=== PATIENT | female | born 1985 | race Caucasian/White ===

== ENCOUNTER 2018-09-15 23:18 | Emergency (ER) | payer BC ==
--- NOTE | 2018-09-15 23:36 | EDM.PDOC ---
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 Patient that she had temperature of 102 at home. No abdominal pain cramping vaginal bleeding discharge urinary symptoms or other complaints Review of systems: As per history of present illness and below otherwise all systems reviewed and negative. Past medical history: As per history of present illness and as reviewed below otherwise noncontributory. Surgical history: As per history of present illness and as reviewed below otherwise noncontributory. Social history: No reported history of drug or alcohol abuse. Family history: As per history of present illness and as reviewed below otherwise noncontributory. Physical exam: HEENT: Atraumatic, normocephalic, pupils reactive, negative for conjunctival pallor or scleral icterus, mucous membranes moist, throat clear, neck supple, nontender, trachea midline. Tenderness with percussion over her maxillary frontal sinuses Lungs: Clear to auscultation, breath sounds equal bilaterally, chest nontender. Heart: S1S2, regular, negative for clicks, rubs, or JVD. Abdomen: Soft, gravid uterus consistent with dates nontender heart tones present. Negative for masses or hepatosplenomegaly. Negative for costovertebral tenderness. Pelvis: Stable nontender. Genitourinary: Deferred. Rectal: Deferred. Extremities: Atraumatic, negative for cords or calf pain. Neurovascular unremarkable. Neuro: Awake, alert, oriented. Cranial nerves II through XII unremarkable. Cerebellum unremarkable. Motor and sensory unremarkable throughout. Exam nonfocal. Diagnostics: CBC CMP UA influenza screen Therapeutics: None Impression: #1 3 trimester #2 sinusitis Definitive disposition and diagnosis as appropriate pending reevaluation and review of above. 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 ED EXAM, GENERAL - Physical Exam Exam: See Below (See dictation) Course - Vital Signs Last Recorded V/S: Last Vital Signs Temp 36.6 C 09/15/18 23:18 Pulse 118 H 09/15/18 23:18 Resp 18 09/15/18 23:18 BP 130/79 09/15/18 23:18 Pulse Ox 100 09/15/18 23:18 - Orders/Labs/Meds Orders: Active Orders 24 hr Category Date Time Status CBC WITH AUTO DIFF [HEME] Stat Lab 09/15/18 23:20 Ordered COMPREHENSIVE METABOLIC PN,CMP [CHEM] Stat Lab 09/15/18 23:20 Ordered INFLUENZA A+B AG SCREEN [RM] Stat Lab 09/15/18 23:20 Ordered UA RFX LORETA AND CULT IF INDIC [URIN] Stat Lab 09/15/18 23:20 Ordered Departure - Departure Time of Disposition: 23:34 Disposition: Home, Self-Care 01 Condition: Good Clinical Impression: Sinusitis, Third trimester - Discharge Information Additional Instructions: The following information is given to patients seen in the emergency department who are being discharged to home. This information is to outline your options for follow-up care. We provide all patients seen in our emergency department with a follow-up referral. The need for follow-up, as well as the timing and circumstances, are variable depending upon the specifics of your emergency department visit. If you don't have a primary care physician on staff, we will provide you with a referral. We always advise you to contact your personal physician following an emergency department visit to inform them of the circumstance of the visit and for follow-up with them and/or the need for any referrals to a consulting specialist. The emergency department will also refer you to a specialist when appropriate. This referral assures that you have the opportunity for followup care with a specialist. All of these measure are taken in an effort to provide you with optimal care, which includes your followup. Under all circumstances we always encourage you to contact your private physician who remains a resource for coordinating your care. When calling for followup care, please make the office aware that this follow-up is from your recent emergency room visit. If for any reason you are refused follow-up, please contact the [facility] emergency department at and asked to speak to the emergency department charge nurse. Z-Júnior as prescribed follow-up BATTER MIXER HELPER return as needed as discussed - My Orders Last 24 Hours: My Active Orders 09/15/18 23:20 CBC WITH AUTO DIFF [HEME] Stat COMPREHENSIVE METABOLIC PN,CMP [CHEM] Stat INFLUENZA A+B AG SCREEN [RM] Stat UA RFX LORETA AND CULT IF INDIC [URIN] Stat - Assessment/Plan Last 24 Hours: My Active Orders 09/15/18 23:20 CBC WITH AUTO DIFF [HEME] Stat COMPREHENSIVE METABOLIC PN,CMP [CHEM] Stat INFLUENZA A+B AG SCREEN [RM] Stat UA RFX LORETA AND CULT IF INDIC [URIN] Stat
[2018-09-15 23:55] LABS: CHLORIDE,CL 102 mmol/L (98-107); SODIUM,NA 137 mmol/L (136-145)
== END 2018-09-16 00:08 | disposition home or self-care (01) ==
LOC: MW.ED 23:18
DX: O99.513 Diseases of the respiratory system complicating pregnancy, third trimester (principal); J32.9 Chronic sinusitis, unspecified; O99.333 Smoking (tobacco) complicating pregnancy, third trimester; F17.210 Nicotine dependence, cigarettes, uncomplicated; Z3A.36 36 weeks gestation of pregnancy
CPT/HCPCS: 36415; 80053; 81001; 85025; 87804; 99282; 99283

== ENCOUNTER 2018-10-19 18:03 | Inpatient (IN) | payer BC ==
[2018-10-19] MEDS ORDERED: fentaNYL 100 MCG/2 ML SDV ONE (18:55)
[2018-10-19] MEDS ORDERED: Tranexamic Acid 1,000 MG in Sodium Chloride 0.9% 100 ML IV PRN (18:56)
[2018-10-19] MEDS ORDERED: Water For Irrigation,Sterile 1,000 ML Container IRR PRN (18:56)
[2018-10-19] MEDS ORDERED: Sodium Chloride 0.9% 2.5 ML Syringe FLUSH PRN (18:56)
[2018-10-19] MEDS ORDERED: Nalbuphine 10 MG/1 ML Vial IVPUSH PRN (18:56)
[2018-10-19] MEDS ORDERED: Carboprost Tromethamine 250 MCG/1 ML Amp IM PRN (18:56)
[2018-10-19] MEDS ORDERED: Sodium Chloride 0.9% 10 ML Syringe FLUSH PRN (18:56)
[2018-10-19] MEDS ORDERED: Misoprostol 200 MCG Tab PO PRN (18:56)
[2018-10-19] MEDS ORDERED: Butorphanol 1 MG/ML SDV IVPUSH PRN (18:56)
[2018-10-19] MEDS ORDERED: Sodium Chloride 0.9% 10 ML SDV IV PRN (18:56)
[2018-10-19] MEDS ORDERED: Lidocaine 1% 50 ML MDV INJECT PRN (18:56)
[2018-10-19] MEDS ORDERED: Methylergonovine 0.2 MG/1 ML Amp IM PRN (18:56)
[2018-10-19] MEDS ORDERED: ePHEDrine 50 MG/ML SDV ONE ×2 (18:58→19:32)
[2018-10-19] MEDS ORDERED: Lactated Ringers 1,000 ML IV SCH (19:00)
[2018-10-19] MEDS ORDERED: Oxytocin/0.9 % Sodium Chloride 30 UNIT/500 ML BAG IV SCH (19:00)
--- NOTE | 2018-10-19 19:24 | PCM.PREANE ---
Preanesthetic Assessment - Procedure Proposed Procedure: Intrathecal for labor - Anesthesia/Transfusion/Family Hx Anesthesia History: No Prior Anesthesia Family History of Anesthesia Reaction: No Transfusion History: Unknown Intubation History: Unknown - Review of Systems General: No Symptoms Pulmonary: No Symptoms Cardiovascular: No Symptoms Gastrointestinal: No Symptoms Neurological: No Symptoms Other: Reports: None - Physical Assessment ASA Class: 2 Mental Status: Alert & Oriented x3 Dentition: Reports: Normal Dentition Thyro-Mental Finger Breadths: 3 Mouth Opening Finger Breadths: 3 ROM/Head Extension: Full Lungs: Clear to Auscultation, Normal Respiratory Effort Cardiovascular: Regular Rate, Regular Rhythm - Lab Values: Laboratory Last Values WBC 16.49 K/uL (4.0-11.0) H 10/19/18 18:36 RBC 4.59 M/uL (4.30-5.90) 10/19/18 18:36 Hgb 12.3 g/dL (12.0-16.0) 10/19/18 18:36 Hct 37.4 % (36.0-46.0) 10/19/18 18:36 MCV 81.5 fL (80.0-98.0) 10/19/18 18:36 MCH 26.8 pg (27.0-32.0) L 10/19/18 18:36 MCHC 32.9 g/dL (31.0-37.0) 10/19/18 18:36 RDW Std Deviation 45.6 fl (28.0-62.0) 10/19/18 18:36 RDW Coeff of Jonah 16 % (11.0-15.0) H 10/19/18 18:36 Plt Count 321 K/uL (150-400) 10/19/18 18:36 MPV 10.10 fL (7.40-12.00) 10/19/18 18:36 Nucleated RBC % 0.0 /100WBC 10/19/18 18:36 Nucleated RBCs # 0 K/uL 10/19/18 18:36 - Allergies Allergies/Adverse Reactions: Allergies Allergy/AdvReac Type Severity Reaction Status Date / Time No Known Allergies Allergy Verified 09/15/18 23:19 - Blood Blood Available: Yes Product(s) Available: None - Anesthesia Plan Pre-Op Medication Ordered: None (Consent obtained pt and verbalize understanding) PreAnesthesia Questionnaire - Past Health History Medical/Surgical History: Denies 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 [No Known Home Meds] 09/15/18 [History] - CURRENT (IN HOUSE) MEDS Current Meds: Current Medications Butorphanol Tartrate (Stadol) 1 mg IVPUSH Q1H PRN PRN Reason: Pain Carboprost Tromethamine (Hemabate Ds) 250 mcg IM ASDIRECTED PRN PRN Reason: Post Hemorrhage Lactated Ringer's (Ringers, Lactated) 1,000 mls @ 150 mls/hr IV ASDIRECTED [facility] Oxytocin/Sodium Chloride (Oxytocin 30 Unit/500 Ml-Ns) 30 unit in 500 mls @ 999 mls/hr IV TITRATE [facility] Tranexamic Acid 1,000 mg/ (Sodium Chloride) 110 mls @ 660 mls/hr IV ONETIME PRN PRN Reason: Bleeding Lidocaine HCl (Xylocaine 1%) 50 ml INJECT ONETIME PRN PRN Reason: Laceration repair Methylergonovine Maleate (Methergine) 0.2 mg IM ASDIRECTED PRN PRN Reason: Post Hemorrhage Misoprostol (Cytotec) 200 mcg PO ONETIME PRN PRN Reason: Post Hemorrhage Nalbuphine HCl (Nubain) 10 mg IVPUSH Q1H PRN PRN Reason: Pain (severe 7-10) Sodium Chloride (Saline Flush) 10 ml FLUSH ASDIRECTED PRN PRN Reason: Keep Vein Open Sodium Chloride (Saline Flush) 2.5 ml FLUSH ASDIRECTED PRN PRN Reason: Keep Vein Open Sodium Chloride (Normal Saline) 10 ml IV ASDIRECTED PRN PRN Reason: IV Use Sterile Water (Sterile Water For Irrigation) 1,000 ml IRR ASDIRECTED PRN PRN Reason: delivery Discontinued Medications Ephedrine Sulfate (Ephedrine Sulfate) Confirm Administered Dose 50 mg .ROUTE .STK-MED ONE Stop: 10/19/18 18:59 Fentanyl (Sublimaze) Confirm Administered Dose 100 mcg .ROUTE .STK-MED ONE Stop: 10/19/18 18:56
[2018-10-19] MEDS ORDERED: Benzocaine/Menthol 20%-0.5% Spray 78 GM Cannister TOP PRN (20:17)
[2018-10-19] MEDS ORDERED: Bisacodyl 10 MG Supp RECTAL PRN (20:17)
[2018-10-19] MEDS ORDERED: Witch Hazel Medicated Pads 40/Jar TOP PRN (20:17)
[2018-10-19] MEDS ORDERED: Acetaminophen 500 MG Tab PO PRN ×2 (20:17)
[2018-10-19] MEDS ORDERED: Ibuprofen 800 MG Tab PO PRN (20:17)
[2018-10-19] MEDS ORDERED: Ibuprofen 400 MG Tab PO PRN (20:17)
[2018-10-19] MEDS ORDERED: Docusate Sodium 100 MG Cap PO PRN (20:17)
[2018-10-19] MEDS ORDERED: Lanolin 100% Cream 7 GM Tube TOP PRN (20:17)
--- NOTE | 2018-10-19 20:23 | PCM.DEL ---
L & D Note - General Info Date of Service: 10/19/18 - Delivery Note Labor: Spontaneous Delivery Outcome: Livebirth Delivery Method: Spontaneous Vaginal Delivery-Single Delivery Mode: Spontaneous Presentation: Vertex Nuchal Cord: None Anesthetic: Other (Intrathecal) Amniotic Fluid Description: Clear Episiotomy Type: None Laceration: None Placenta: Intact, Spontaneous Estimated Blood Loss: 200 Resuscitation Needed: No - General Info Date of Service: 10/19/18 - Patient Data Weight - Most Recent: 82.1 kg Lab Results Last 24 Hours: Laboratory Results - last 24 hr 10/19/18 10/19/18 Range/Units 18:36 18:36 WBC 16.49 H (4.0-11.0) K/uL RBC 4.59 (4.30-5.90) M/uL Hgb 12.3 (12.0-16.0) g/dL Hct 37.4 (36.0-46.0) % MCV 81.5 (80.0-98.0) fL MCH 26.8 L (27.0-32.0) pg MCHC 32.9 (31.0-37.0) g/dL RDW Std Deviation 45.6 (28.0-62.0) fl RDW Coeff of Jonah 16 H (11.0-15.0) % Plt Count 321 (150-400) K/uL MPV 10.10 (7.40-12.00) fL Nucleated RBC % 0.0 /100WBC Nucleated RBCs # 0 K/uL Blood Type AB POSITIVE Antibody Screen NEGATIVE Med Orders - Current: Current Medications Discontinued Medications Butorphanol Tartrate (Stadol) 1 mg IVPUSH Q1H PRN PRN Reason: Pain Carboprost Tromethamine (Hemabate Ds) 250 mcg IM ASDIRECTED PRN PRN Reason: Post Hemorrhage Ephedrine Sulfate (Ephedrine Sulfate) Confirm Administered Dose 50 mg .ROUTE .STK-MED ONE Stop: 10/19/18 18:59 Ephedrine Sulfate (Ephedrine Sulfate) Confirm Administered Dose 50 mg .ROUTE .STK-MED ONE Stop: 10/19/18 19:33 Fentanyl (Sublimaze) Confirm Administered Dose 100 mcg .ROUTE .STK-MED ONE Stop: 10/19/18 18:56 Lactated Ringer's (Ringers, Lactated) 1,000 mls @ 150 mls/hr IV ASDIRECTED [facility] Oxytocin/Sodium Chloride (Oxytocin 30 Unit/500 Ml-Ns) 30 unit in 500 mls @ 999 mls/hr IV TITRATE [facility] Tranexamic Acid 1,000 mg/ (Sodium Chloride) 110 mls @ 660 mls/hr IV ONETIME PRN PRN Reason: Bleeding Lidocaine HCl (Xylocaine 1%) 50 ml INJECT ONETIME PRN PRN Reason: Laceration repair Methylergonovine Maleate (Methergine) 0.2 mg IM ASDIRECTED PRN PRN Reason: Post Hemorrhage Misoprostol (Cytotec) 200 mcg PO ONETIME PRN PRN Reason: Post Hemorrhage Nalbuphine HCl (Nubain) 10 mg IVPUSH Q1H PRN PRN Reason: Pain (severe 7-10) Sodium Chloride (Saline Flush) 10 ml FLUSH ASDIRECTED PRN PRN Reason: Keep Vein Open Sodium Chloride (Saline Flush) 2.5 ml FLUSH ASDIRECTED PRN PRN Reason: Keep Vein Open Sodium Chloride (Normal Saline) 10 ml IV ASDIRECTED PRN PRN Reason: IV Use Sterile Water (Sterile Water For Irrigation) 1,000 ml IRR ASDIRECTED PRN PRN Reason: delivery - Problem List Review Problem List Initiated/Reviewed/Updated: Yes - My Orders Last 24 Hours: My Active Orders 10/19/18 18:56 Heart Tones [RC] CONTINUOUS Non Stress Test [RC] PER UNIT ROUTINE May Shower [RC] ASDIRECTED Notify Provider [RC] PRN Up ad Paula [RC] ASDIRECTED Vaginal Exam [RC] PRN Vital Signs [RC] PER UNIT ROUTINE 10/19/18 20:17 Patient Status [ADT] Routine May Shower [RC] ASDIRECTED Up ad Paula [RC] ASDIRECTED Vital Signs [RC] PER UNIT ROUTINE Acetaminophen [Tylenol Extra Strength] 1,000 mg PO Q4H PRN Acetaminophen [Tylenol Extra Strength] 500 mg PO Q4H PRN Benzocaine/Menthol [Dermoplast Pain Relief 20%-0.5% [place]] 78 gm TOP ASDIRECTED PRN Bisacodyl [Dulcolax] 10 mg RECTAL ONETIME PRN Docusate Sodium [Colace] 100 mg PO BID PRN Ibuprofen [Motrin] 400 mg PO Q4H PRN Ibuprofen [Motrin] 800 mg PO Q6H PRN Lanolin [Lansinoh HPA] See Dose Instructions TOP ASDIRECTED PRN Witch Elif [Tucks] 1 pad TOP ASDIRECTED PRN Assess Lochia [WOMSER] Per Unit Routine Assess Uterine Involution [WOMSER] Per Unit Routine Peripheral IV Discontinue [OM.PC] Routine Resuscitation Status Routine 10/20/18 05:11 HEMOGLOBIN/HEMATOCRIT,HH [HEME] Timed - Assessment Assessment:: . Vigorous girl. No laceration. Mother and baby well, to PP - Plan Plan:: To PP cares.
--- NOTE | 2018-10-20 08:13 | PCM48HPAN ---
Post Anesthesia Note - EVALUATION WITHIN 48HRS OF ANESTHETIC Vital Signs in Normal Range: Yes Patient Participated in Evaluation: Yes Respiratory Function Stable: Yes Airway Patent: Yes Cardiovascular Function Stable: Yes Hydration Status Stable: Yes Pain Control Satisfactory: Yes Nausea and Vomiting Control Satisfactory: Yes Mental Status Recovered: Yes Pulse Rate: 90 SaO2: 98 Resp Rate: 16 Blood Pressure: 104/70
--- NOTE | 2018-10-20 10:44 | PCM.PN ---
- General Info Date of Service: 10/20/18 Functional Status: Reports: Pain Controlled, Tolerating Diet, Ambulating - Review of Systems General: Reports: No Symptoms Gastrointestinal: Reports: No Symptoms Genitourinary: Reports: No Symptoms (normal lochia flow) - Patient Data Vitals - Most Recent: Last Vital Signs Temp 36.7 C 10/20/18 07:33 Pulse 90 10/20/18 08:13 Resp 16 10/20/18 08:13 BP 104/70 10/20/18 08:13 Pulse Ox 98 10/20/18 08:13 Weight - Most Recent: 82.554 kg Lab Results Last 24 Hours: Laboratory Results - last 24 hr 10/19/18 10/19/18 10/20/18 Range/Units 18:36 18:36 05:49 WBC 16.49 H (4.0-11.0) K/uL RBC 4.59 (4.30-5.90) M/uL Hgb 12.3 12.3 (12.0-16.0) g/dL Hct 37.4 38.6 (36.0-46.0) % MCV 81.5 (80.0-98.0) fL MCH 26.8 L (27.0-32.0) pg MCHC 32.9 (31.0-37.0) g/dL RDW Std Deviation 45.6 (28.0-62.0) fl RDW Coeff of Jonah 16 H (11.0-15.0) % Plt Count 321 (150-400) K/uL MPV 10.10 (7.40-12.00) fL Nucleated RBC % 0.0 /100WBC Nucleated RBCs # 0 K/uL Blood Type AB POSITIVE Antibody Screen NEGATIVE Med Orders - Current: Current Medications Acetaminophen (Tylenol Extra Strength) 500 mg PO Q4H PRN PRN Reason: Pain Acetaminophen (Tylenol Extra Strength) 1,000 mg PO Q4H PRN PRN Reason: Pain Benzocaine/Menthol (Dermoplast Pain Relief 20%-0.5% [place]) 78 gm TOP ASDIRECTED PRN PRN Reason: Perineal Comfort Measure Bisacodyl (Dulcolax) 10 mg RECTAL ONETIME PRN PRN Reason: Constipation Docusate Sodium (Colace) 100 mg PO BID PRN PRN Reason: Constipation Emollient Ointment (Lansinoh Hpa) 0 gm TOP ASDIRECTED PRN PRN Reason: Sore Nipples Ibuprofen (Motrin) 400 mg PO Q4H PRN PRN Reason: Pain Ibuprofen (Motrin) 800 mg PO Q6H PRN PRN Reason: Pain Witch Elif (Tucks) 1 pad TOP ASDIRECTED PRN PRN Reason: comfort care Discontinued Medications Butorphanol Tartrate (Stadol) 1 mg IVPUSH Q1H PRN PRN Reason: Pain Carboprost Tromethamine (Hemabate Ds) 250 mcg IM ASDIRECTED PRN PRN Reason: Post Hemorrhage Ephedrine Sulfate (Ephedrine Sulfate) Confirm Administered Dose 50 mg .ROUTE .STK-MED ONE Stop: 10/19/18 18:59 Ephedrine Sulfate (Ephedrine Sulfate) Confirm Administered Dose 50 mg .ROUTE .STK-MED ONE Stop: 10/19/18 19:33 Fentanyl (Sublimaze) Confirm Administered Dose 100 mcg .ROUTE .STK-MED ONE Stop: 10/19/18 18:56 Lactated Ringer's (Ringers, Lactated) 1,000 mls @ 150 mls/hr IV ASDIRECTED [facility] Oxytocin/Sodium Chloride (Oxytocin 30 Unit/500 Ml-Ns) 30 unit in 500 mls @ 999 mls/hr IV TITRATE [facility] Last Admin: 10/19/18 19:55 Dose: 500 mls/hr Tranexamic Acid 1,000 mg/ (Sodium Chloride) 110 mls @ 660 mls/hr IV ONETIME PRN PRN Reason: Bleeding Lidocaine HCl (Xylocaine 1%) 50 ml INJECT ONETIME PRN PRN Reason: Laceration repair Methylergonovine Maleate (Methergine) 0.2 mg IM ASDIRECTED PRN PRN Reason: Post Hemorrhage Misoprostol (Cytotec) 200 mcg PO ONETIME PRN PRN Reason: Post Hemorrhage Nalbuphine HCl (Nubain) 10 mg IVPUSH Q1H PRN PRN Reason: Pain (severe 7-10) Sodium Chloride (Saline Flush) 10 ml FLUSH ASDIRECTED PRN PRN Reason: Keep Vein Open Sodium Chloride (Saline Flush) 2.5 ml FLUSH ASDIRECTED PRN PRN Reason: Keep Vein Open Sodium Chloride (Normal Saline) 10 ml IV ASDIRECTED PRN PRN Reason: IV Use Sterile Water (Sterile Water For Irrigation) 1,000 ml IRR ASDIRECTED PRN PRN Reason: delivery - Exam General: Alert, Oriented, Cooperative, No Acute Distress Neck: Supple GI/Abdominal Exam: Soft, Non-Tender (Female) Exam: Other (Uterus firm and non-tender.) Back Exam: Normal Inspection (no CVAT) Extremities: Normal Inspection - Problem List Review Problem List Initiated/Reviewed/Updated: Yes - My Orders Last 24 Hours: My Active Orders 10/19/18 18:56 Heart Tones [RC] CONTINUOUS Non Stress Test [RC] PER UNIT ROUTINE May Shower [RC] ASDIRECTED Notify Provider [RC] PRN Up ad Paula [RC] ASDIRECTED Vaginal Exam [RC] PRN Vital Signs [RC] PER UNIT ROUTINE 10/19/18 20:17 Patient Status [ADT] Routine May Shower [RC] ASDIRECTED Up ad Paula [RC] ASDIRECTED Vital Signs [RC] PER UNIT ROUTINE Acetaminophen [Tylenol Extra Strength] 1,000 mg PO Q4H PRN Acetaminophen [Tylenol Extra Strength] 500 mg PO Q4H PRN Benzocaine/Menthol [Dermoplast Pain Relief 20%-0.5% [place]] 78 gm TOP ASDIRECTED PRN Bisacodyl [Dulcolax] 10 mg RECTAL ONETIME PRN Docusate Sodium [Colace] 100 mg PO BID PRN Ibuprofen [Motrin] 400 mg PO Q4H PRN Ibuprofen [Motrin] 800 mg PO Q6H PRN Lanolin [Lansinoh HPA] See Dose Instructions TOP ASDIRECTED PRN Witch Elif [Tucks] 1 pad TOP ASDIRECTED PRN Assess Lochia [WOMSER] Per Unit Routine Assess Uterine Involution [WOMSER] Per Unit Routine Peripheral IV Discontinue [OM.PC] Routine Resuscitation Status Routine 10/20/18 Breakfast Regular Diet [DIET] - Assessment Assessment:: Pt feels well. No c/o. Discharge risks discussed. Discharge. - Plan Plan:: Discharge to home, with risks discussed.
--- NOTE | 2018-10-20 10:52 | PCM.DCSUM1 ---
Discharge Summary - Hospital Course Free Text/Narrative:: PPD#1 uncomplicated - Discharge Data Discharge Date: 10/20/18 Discharge Disposition: Home, Self-Care 01 Condition: Good - Patient Summary/Data Operative Procedure(s) Performed: vaginal delivery Complications: none - Patient Instructions Diet: Regular Diet as Tolerated Activity: Rest and Relax Today (pelvic rest x 6 weeks) - Discharge Plan *PRESCRIPTION DRUG MONITORING PROGRAM REVIEWED*: Not Applicable Home Medications: Home Meds . [No Known Home Meds] 09/15/18 [History] - Discharge Summary/Plan Comment DC Time >30 min.: No - General Info Date of Service: 10/20/18 - Review of Systems General: Reports: No Symptoms Gastrointestinal: Reports: No Symptoms Genitourinary: Reports: No Symptoms - Patient Data Vitals - Most Recent: Last Vital Signs Temp 36.7 C 10/20/18 07:33 Pulse 90 10/20/18 08:13 Resp 16 10/20/18 08:13 BP 104/70 10/20/18 08:13 Pulse Ox 98 10/20/18 08:13 Weight - Most Recent: 82.554 kg Lab Results - Last 24 hrs: Laboratory Results - last 24 hr 10/19/18 10/19/18 10/20/18 Range/Units 18:36 18:36 05:49 WBC 16.49 H (4.0-11.0) K/uL RBC 4.59 (4.30-5.90) M/uL Hgb 12.3 12.3 (12.0-16.0) g/dL Hct 37.4 38.6 (36.0-46.0) % MCV 81.5 (80.0-98.0) fL MCH 26.8 L (27.0-32.0) pg MCHC 32.9 (31.0-37.0) g/dL RDW Std Deviation 45.6 (28.0-62.0) fl RDW Coeff of Jonah 16 H (11.0-15.0) % Plt Count 321 (150-400) K/uL MPV 10.10 (7.40-12.00) fL Nucleated RBC % 0.0 /100WBC Nucleated RBCs # 0 K/uL Blood Type AB POSITIVE Antibody Screen NEGATIVE Med Orders - Current: Current Medications Acetaminophen (Tylenol Extra Strength) 500 mg PO Q4H PRN PRN Reason: Pain Acetaminophen (Tylenol Extra Strength) 1,000 mg PO Q4H PRN PRN Reason: Pain Benzocaine/Menthol (Dermoplast Pain Relief 20%-0.5% [place]) 78 gm TOP ASDIRECTED PRN PRN Reason: Perineal Comfort Measure Bisacodyl (Dulcolax) 10 mg RECTAL ONETIME PRN PRN Reason: Constipation Docusate Sodium (Colace) 100 mg PO BID PRN PRN Reason: Constipation Emollient Ointment (Lansinoh Hpa) 0 gm TOP ASDIRECTED PRN PRN Reason: Sore Nipples Ibuprofen (Motrin) 400 mg PO Q4H PRN PRN Reason: Pain Ibuprofen (Motrin) 800 mg PO Q6H PRN PRN Reason: Pain Witch Elif (Tucks) 1 pad TOP ASDIRECTED PRN PRN Reason: comfort care Discontinued Medications Butorphanol Tartrate (Stadol) 1 mg IVPUSH Q1H PRN PRN Reason: Pain Carboprost Tromethamine (Hemabate Ds) 250 mcg IM ASDIRECTED PRN PRN Reason: Post Hemorrhage Ephedrine Sulfate (Ephedrine Sulfate) Confirm Administered Dose 50 mg .ROUTE .STK-MED ONE Stop: 10/19/18 18:59 Ephedrine Sulfate (Ephedrine Sulfate) Confirm Administered Dose 50 mg .ROUTE .STK-MED ONE Stop: 10/19/18 19:33 Fentanyl (Sublimaze) Confirm Administered Dose 100 mcg .ROUTE .STK-MED ONE Stop: 10/19/18 18:56 Lactated Ringer's (Ringers, Lactated) 1,000 mls @ 150 mls/hr IV ASDIRECTED [facility] Oxytocin/Sodium Chloride (Oxytocin 30 Unit/500 Ml-Ns) 30 unit in 500 mls @ 999 mls/hr IV TITRATE [facility] Last Admin: 10/19/18 19:55 Dose: 500 mls/hr Tranexamic Acid 1,000 mg/ (Sodium Chloride) 110 mls @ 660 mls/hr IV ONETIME PRN PRN Reason: Bleeding Lidocaine HCl (Xylocaine 1%) 50 ml INJECT ONETIME PRN PRN Reason: Laceration repair Methylergonovine Maleate (Methergine) 0.2 mg IM ASDIRECTED PRN PRN Reason: Post Hemorrhage Misoprostol (Cytotec) 200 mcg PO ONETIME PRN PRN Reason: Post Hemorrhage Nalbuphine HCl (Nubain) 10 mg IVPUSH Q1H PRN PRN Reason: Pain (severe 7-10) Sodium Chloride (Saline Flush) 10 ml FLUSH ASDIRECTED PRN PRN Reason: Keep Vein Open Sodium Chloride (Saline Flush) 2.5 ml FLUSH ASDIRECTED PRN PRN Reason: Keep Vein Open Sodium Chloride (Normal Saline) 10 ml IV ASDIRECTED PRN PRN Reason: IV Use Sterile Water (Sterile Water For Irrigation) 1,000 ml IRR ASDIRECTED PRN PRN Reason: delivery
== END 2018-10-20 22:05 | disposition home or self-care (01) | DRG 560 ==
LOC: MW.OBCHECK 18:03 → MW.OB 18:04 → MW.OBCHECK 18:56 → MW.OB 19:04 → OBSVTOIN 20:17 → MW.OB 10-20 00:14
PROVIDERS: ADMIT Obstetrics & Gynecology; ATTEND Obstetrics & Gynecology
PROC: 10907ZC Drainage of Amniotic Fluid, Therapeutic from Products of Conception, Via Natural or Artificial Opening (ICD-10-PCS; principal; 2018-10-19)
PROC: 10E0XZZ Delivery of Products of Conception, External Approach (ICD-10-PCS; principal; 2018-10-19)
PROC: 00HU33Z Insertion of Infusion Device into Spinal Canal, Percutaneous Approach (ICD-10-PCS; 2018-10-19)
PROC: 3E0R3BZ Introduction of Anesthetic Agent into Spinal Canal, Percutaneous Approach (ICD-10-PCS; 2018-10-19)
DX: O48.0 Post-term pregnancy (principal); Z3A.40 40 weeks gestation of pregnancy; Z37.0 Single live birth
CPT/HCPCS: 36415; 59025; 59409; 85014; 85018; 85027; 86850; 86900; 86901; A9270-GY; J2590

== ENCOUNTER 2019-04-01 16:32 | Emergency (ER) | payer BC ==
--- NOTE | 2019-04-01 16:59 | EDM.PDOC ---
<Debbie Castro E - Last Filed: 04/01/19 17:45> ED HPI GENERAL MEDICAL PROBLEM - General Chief Complaint: Upper Extremity Injury/Pain Stated Complaint: LEFT HIP /ARM PAIN Time Seen by Provider: 04/01/19 16:49 Source of Information: Reports: Patient History Limitations: Reports: No Limitations - History of Present Illness INITIAL COMMENTS - FREE TEXT/NARRATIVE: HISTORY AND PHYSICAL: History of present illness: Patient is a 33-year-old female who presents to the emergency room today with complaints of right elbow and right knee pain after a fall. Patient reports she was balancing on one leg trying to put her tendon issue on when she fell over onto her side. She states she had an obvious dislocation of the right patella but as she went to straighten her leg it popped back into place. Since that time she has had some soft tissue swelling and pain with weightbearing. She also has concern of the right elbow which she states is painful to fully extend. She denies hitting her head or having any loss of conscious she denies any numbness, tingling, saddle paresthesias. She offers no systemic complaints. Denies any chance of . Review of systems: As per history of present illness and below otherwise all systems reviewed and negative. Past medical history: As per history of present illness and as reviewed below otherwise noncontributory. Surgical history: As per history of present illness and as reviewed below otherwise noncontributory. Social history: See social history for further information Family history: As per history of present illness and as reviewed below otherwise noncontributory. Physical exam: General: Well-developed and well-nourished 33-year-old female. Alert and oriented. Nontoxic appearing and in no acute distress. HEENT: Atraumatic, normocephalic, pupils equal and reactive bilaterally, negative for conjunctival pallor or scleral icterus, mucous membranes moist, trachea midline. No drooling or trismus noted. No meningeal signs. No hot potato voice noted. Lungs: Clear to auscultation, breath sounds equal bilaterally, chest nontender. Heart: S1S2, regular rate and rhythm without overt murmur Abdomen: Soft, nondistended, nontender. Negative for masses. Negative for costovertebral tenderness. Pelvis: Stable nontender. Skin: Early bruising noted at the right anterior knee. Intact, warm, dry. No lesions or rashes noted. Extremities: Patient is ambulatory without any difficulty or deficits, moves all extremities per self. Mild soft tissue swelling noted right anterior knee and right elbow. Able to fully extend and flex both the knee and elbow. She is negative for cords or calf pain. Strong pedal and radial pulses to distal extremities. Neurovascular unremarkable. Neuro: Awake, alert, oriented. Cranial nerves II through XII unremarkable. Cerebellum unremarkable. Motor and sensory unremarkable throughout. Exam nonfocal. Notes: No acute fractures noted. Supportive care measures were reviewed and discussed. Voices understanding and is agreeable to plan of care. Denies any further questions or concerns at this time. Diagnostics: Right knee x-ray, right elbow x-ray Therapeutics: Knee immobilizer Prescription: None Impression: Fall Right Knee Injury Right Elbow Injury Plan: 1. Rest, ice, elevate the affected extremity. Please wear the brace as directed. 2. Tylenol and/or Ibuprofen as needed for pain management. 3. Follow up with the Orthopedic provider as we discussed. Return to the ED as needed and as discussed. Definitive disposition and diagnosis as appropriate pending reevaluation and review of above. Treatments [employer]: Reports: NSAIDS right elbow/knee Pain Score (Numeric/FACES): 7 - Related Data Allergies Allergy/AdvReac Type Severity Reaction Status Date / Time No Known Allergies Allergy Verified 04/01/19 16:50 Home Meds: Home Meds . 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 [employer] History: Reports: Musculoskeletal History: Reports: None Neurological History: Reports: None Psychiatric History: Reports: None Endocrine/Metabolic History: Reports: None Hematologic History: Reports: None Immunologic History: Reports: None Oncologic (Cancer) History: Reports: None Dermatologic History: Reports: None - Past Surgical History HEENT Surgical History: Reports: None GI Surgical History: Reports: None Female Surgical History: Reports: None Social & Family History - Family History Family Medical History: Noncontributory - Tobacco Use Smoking Status *Q: Never Smoker - Caffeine Use Caffeine Use: Reports: None - Recreational Drug Use Recreational Drug Use: No Review of Systems - Review of Systems Review Of Systems: ROS reveals no pertinent complaints other than HPI. ED EXAM, GENERAL - Physical Exam Exam: See Below (See dictation) Course - Vital Signs Last Recorded V/S: Last Vital Signs Temp 36.3 C 04/01/19 16:40 Pulse 110 H 04/01/19 16:40 Resp 18 04/01/19 16:40 BP 119/71 04/01/19 16:40 Pulse Ox 95 04/01/19 16:40 - Orders/Labs/Meds Orders: Active Orders 24 hr Category Date Time Status Elbow Min 3V Rt [CR] Stat Exams 04/01/19 16:49 Taken Knee 3V Rt [CR] Stat Exams 04/01/19 16:49 Taken DME for Discharge [COMM] Stat Oth 04/01/19 17:01 Ordered Departure - Departure Disposition: Home, Self-Care 01 Clinical Impression: Fall Qualifiers: Encounter type: initial encounter Qualified Code(s): W19.XXXA - Unspecified fall, initial encounter Injury of right elbow Qualifiers: Encounter type: initial encounter Qualified Code(s): S59.901A - Unspecified injury of right elbow, initial encounter Right knee injury Qualifiers: Encounter type: initial encounter Qualified Code(s): S89.91XA - Unspecified injury of right lower leg, initial encounter - Discharge Information Instructions: Knee Sprain, Adult, [id number], Elbow Contusion Referrals: PCP,Unknown [Primary Care Provider] - Forms: ED Department Discharge Additional Instructions: The following information is given to patients seen in the emergency department who are being discharged to home. This information is to outline your options for follow-up care. We provide all patients seen in our emergency department with a follow-up referral. The need for follow-up, as well as the timing and circumstances, are variable depending upon the specifics of your emergency department visit. If you don't have a primary care physician on staff, we will provide you with a referral. We always advise you to contact your personal physician following an emergency department visit to inform them of the circumstance of the visit and for follow-up with them and/or the need for any referrals to a consulting specialist. The emergency department will also refer you to a specialist when appropriate. This referral assures that you have the opportunity for follow-up care with a specialist. All of these measure are taken in an effort to provide you with optimal care, which includes your follow-up. Under all circumstances we always encourage you to contact your private physician who remains a resource for coordinating your care. When calling for follow-up care, please make the office aware that this follow-up is from your recent emergency room visit. If for any reason you are refused follow-up, please contact the [facility] Emergency Department at and asked to speak to the emergency department charge nurse. [facility] [address] [place] [id number] [facility] [address] [place] [id number] 1. Rest, ice, elevate the affected extremity. Please wear the brace as directed. 2. Tylenol and/or Ibuprofen as needed for pain management. 3. Follow up with the Orthopedic provider as we discussed. Return to the ED as needed and as discussed. #4 posterior mold sling as directed <Anshul Ingram - Last Filed: 04/01/19 17:53> ED HPI GENERAL MEDICAL PROBLEM - History of Present Illness INITIAL COMMENTS - FREE TEXT/NARRATIVE: X-ray of her right elbow is suspicious for radial head fracture and x-ray of right knee shows a small patellar avulsion but no other acute fracture or dislocation patient had a posterior mold applied to her right upper extremity in sling they have already scheduled an orthopedic follow-up which they have on . Departure - Departure Time of Disposition: 17:53
--- NOTE | 2019-04-01 18:23 | CR ---
Indication: Fall yesterday. Technique: Three views of the right elbow were obtained. Comparison: None Findings: A joint effusion is identified. A suspected radial head fracture is present. Impression: Suspected radial head fracture with joint effusion Dictated by Peggy Toledo MD @ Apr 01 2019 6:21PM Signed by Dr. Peggy Toledo @ Apr 01 2019 6:21PM
--- NOTE | 2019-04-01 18:34 | CR ---
INDICATION: Fall 1 day prior TECHNIQUE: Three views right knee COMPARISON: None FINDINGS: Bones: Alignment is normal. No fractures or bone lesions. Joint spaces: Joint effusion. Soft tissues: Unremarkable. IMPRESSION: Joint effusion Dictated by Codey Graves MD @ Apr 01 2019 6:33PM Signed by Dr. Codey Graves @ Apr 01 2019 6:33PM
== END 2019-04-01 18:13 | disposition home or self-care (01) ==
LOC: MW.ED 16:32
DX: S59.901A Unspecified injury of right elbow, initial encounter (principal); S89.91XA Unspecified injury of right lower leg, initial encounter; W19.XXXA Unspecified fall, initial encounter; Y93.89 Activity, other specified
CPT/HCPCS: 73080-26-RT; 73080-RT; 73562-26-RT; 73562-RT; 99283-25